=== PATIENT | female | born 1970 | race Caucasian/White ===

== ENCOUNTER 2018-03-02 02:02 | Observation (INO) ==
[2018-03-02 02:20] VITALS: TEMP 98.4
--- NOTE | 2018-03-02 03:03 | XR ---
EXAM DATE: 03/02/2018 2:57 AM EDT AGE/SEX: 47 years / Female INDICATIONS: Short of breath. CLINICAL DATA: This is the patient's initial encounter. Patient reports that signs and symptoms have been present for 1 day and indicates a pain score of 5/10. MEDICAL/SURGICAL HISTORY: None. None. COMPARISON: [facility], XR CHEST PA AND LAT, 04/17/2017. . FINDINGS: A single AP view of the chest demonstrates the lungs to be symmetrically aerated without evidence of mass, infiltrate or effusion. The cardiomediastinal contours are unremarkable. Osseous structures a re intact. CONCLUSION: Negative examination. Electronically signed by: Hudson Madsen MD 03/02/2018 3:01 AM EDT
[2018-03-02 03:26] LABS: Baso % (Auto) 0.8 % (0.0-2.0); Eos # (Auto) 0.1 th/mm3 (0.0-0.4); Eos % (Auto) 1.4 % (0.0-4.0); Hematocrit 40.5 % (35.0-46.0); Hemoglobin 13.5 gm/dL (11.6-15.3); Lymph # (Auto) 2.7 th/mm3 (1.0-4.8); Lymph % (Auto) 50.3 % (9.0-44.0); Mean Corpuscular HGB Conc 33.3 % (32.0-36.0); Mean Corpuscular Hemoglobin 30.8 pg (27.0-34.0); Mean Corpuscular Volume 92.7 fL (80.0-100.0); Mean Platelet Volume 6.9 fL (7.0-11.0); Mono # (Auto) 0.2 th/mm3 (0.0-0.9); Mono % (Auto) 4.4 % (0.0-8.0); Neut # (Auto) 2.3 th/mm3 (1.8-7.7); Neut % (Auto) 43.1 % (16.0-70.0); Platelet Count 305 th/mm3 (150-450); Red Blood Count 4.37 mil/mm3 (4.00-5.30); Red Cell Distribution Width 13.5 % (11.6-17.2); White Blood Count 5.4 th/mm3 (4.0-11.0)
--- NOTE | 2018-03-02 03:33 | ED ---
HPI General Chief complaint: Chest Pain Stated complaint: Chest Pain Time Seen by Provider: 03/02/18 02:31 Source: patient History of Present Illness HPI narrative: The patient is a 47 year old female who presents to the [facility] emergency department with a history of chest pain in the center and left side of her chest that awoke her from sound sleep. She reports the pain is an electrical sensation. She reports that it radiates to the left arm and jaw. She denies having any associated shortness of breath, diaphoresis, or nausea vomiting. She denies ever having a pain like this previously. She denies any history of hypertension, diabetes mellitus, hyperlipidemia, coronary artery disease, DVT, or PE. She denies any lower extremity edema, calf pain, or erythema. She does report having a family history of high blood pressure. She denies ever having stress testing done previously. On review of systems otherwise, the patient denies having any recent heartburn or indigestion. She denies having any known recent fevers, cough, congestion, neck pain, abdominal pain, diarrhea, urinary symptoms, or neurologic symptoms. LMP: One year ago. Related Data Home Medications Medication Instructions Recorded Confirmed levothyroxine 100 mg PO DAILY 03/02/18 03/02/18 Allergies Allergy/AdvReac Type Severity Reaction Status Date / Time No Known Allergies Allergy Unverified 03/02/18 02:21 Review of Systems ROS: all other systems reviewed are negative (Except for that which was mentioned in the HPI.) [facility] Medical History Medical History Hypothyroidism (Acute) Surgical History Surgical History Hx of section (Acute) Social History Social History Substance History: No History of Abuse Second Hand Smoke Exposure: No Smoking Status: Never smoker How Often Do You Have a Drink Containing Alcohol: Never Recent Travel in [facility] within the Last 8 Weeks: No Recent Out of Country Travel within the Last 8 Weeks: No Immunization History Tetanus Immunization: <5 Years Hx Influenza Vaccine This Season: No Exam Const General: cooperative, no acute distress and well developed Nutritional Appearance: well nourished Orientation: alert, awake and oriented x3 HENMT Head: normocephalic and atraumatic Nose: no nasal discharge and no epistaxis Mouth: moist mucous membranes Throat: posterior oropharynx normal and uvula midline Eyes Sclera: normal sclerae Pupils: PERRL Neck Neck: no meningeal signs, trachea midline and no JVD Resp Effort & Inspection: no use of accessory muscles Auscultation: clear to auscultation bilaterally Cardio Rate: regular rate Rhythm: regular rhythm Heart Sounds: no gallops, no murmurs and no rubs GI Inspection: non-distended Palpation: soft, no hepatosplenomegaly and nontender Auscultation: normal bowel sounds Back/Spine/Pelvis Back: no CVA tenderness Skin General: dry skin (warm) Neuro General: alert, awake and oriented x3 Cranial Nerves: other (No facial asymmetry.) Speech: speech normal Motor: no movement abnormalities noted Extrem General: normal to inspection (No calf tenderness on palpation. 2+ pulses in all 4 extremities.), no clubbing, no cyanosis and no edema Psych Mood: congruent mood Affect: normal affect Judgment: judgment good Course Initial Documented Vital Signs Temperature 98.4 F 03/02/18 02:17 Pulse Rate 85 03/02/18 02:17 Respiratory Rate 16 03/02/18 02:17 Blood Pressure 128/90 03/02/18 02:17 Pulse Oximetry 100 03/02/18 02:17 Last Documented Vital Signs Temperature 98.4 F 03/02/18 02:17 Pulse Rate 71 03/02/18 03:49 Respiratory Rate 18 03/02/18 03:49 Blood Pressure 122/69 03/02/18 03:49 Pulse Oximetry 99 03/02/18 03:49 Clinical Decision Support PERC Rule Age greater than or equal to 50: Yes HR greather than or equal to 100: Yes Sa02 on room air is less than 95%: Yes Unilateral Leg Swelling: No Hemoptysis: No Recent Surgery or Trauma: No Prior PE or DVT: No Hormone Use: No Wells' Criteria Questions Clinical Signs and Symptoms of DVT: No PE is primary diagnosis or equally likely: No Heart Rate greater than 100: No Immobilized at least 3 days or Surgery in previous 4 weeks: No Previous, objectively diagnosed PE or DVT: No Hemoptysis: No Malignancy with treatment within 6 months or palliative: No Wells' Criteria Score Wells' Criteria Score: 0 Medical Decision Making MDM Narrative Medical decision making narrative: During the course of the patient's emergency department visit, the patient's history, examination, and differential diagnosis were reviewed with the patient. The patient was placed on a environmental monitoring technician with oximetry and frequent blood pressure monitoring. The patient had IV access obtained and blood work sent for analysis. A diagnostic evaluation was started regarding the patient's chest pain that radiates to the left arm and jaw. The patient was initially provided aspirin 324 mg p.o. 1, nitroglycerin sublingual 1. The patient's diagnostic evaluation is remarkable for a white count of 5.4, platelets 305, 50.3 lymphocyte percent, hemoglobin is 13.5, PT 9.7, PTT 25.2, chemistry reveals a troponin I of less than 0.02, CPK 89, GFR of 86, chloride 111, lipase 110. A chest x-ray shows no acute cardiopulmonary disease. The patient's well score was 0, PERC rule was negative, therefore no additional PE testing is indicated. The patient is agreeable with the plan to proceed with admission to the chest pain center for rule out serial cardiac enzyme protocol followed by stress testing. The patient's results were discussed with the patient, including the plan of care. I explained that further testing and/ or monitoring is indicated based on the patient's history, examination, and/ or laboratory findings. Therefore, I recommended admission for additional evaluation. The patient expressed understanding and was agreeable with this plan. The patient was admitted to the hospital in stable condition and sent to a bed under the care of the [facility]. Medical Screen Exam Complete: Yes Emergency Medical Condition: Yes Differential Diagnosis Differential Diagnosis: Acute coronary syndrome, versus pulmonary embolism, versus pneumonia, versus pneumothorax, versus acid reflux Medical Records Medical records reviewed: Yes I reviewed the patient's medical records. POC Test Results POC Urine Results: Negative Lab Data Lab results reviewed: Yes I reviewed the patient's lab results. Result diagrams: 03/02/18 03:11 03/02/18 03:11 Lab Results 03/02/18 03/02/18 03/02/18 Range/Units 03:11 03:11 03:11 WBC 5.4 (4.0-11.0) th/mm3 RBC 4.37 (4.00-5.30) mil/mm3 Hgb 13.5 (11.6-15.3) gm/dL Hct 40.5 (35.0-46.0) % MCV 92.7 (80.0-100.0) fL MCH 30.8 (27.0-34.0) pg MCHC 33.3 (32.0-36.0) % RDW 13.5 (11.6-17.2) % Plt Count 305 (150-450) th/mm3 MPV 6.9 L (7.0-11.0) fL Neut % (Auto) 43.1 (16.0-70.0) % Lymph % (Auto) 50.3 H (9.0-44.0) % [place] % (Auto) 4.4 (0.0-8.0) % Eos % (Auto) 1.4 (0.0-4.0) % Baso % (Auto) 0.8 (0.0-2.0) % Neut # (Auto) 2.3 (1.8-7.7) th/mm3 Lymph # (Auto) 2.7 (1.0-4.8) th/mm3 [place] # (Auto) 0.2 (0.0-0.9) th/mm3 Eos # (Auto) 0.1 (0.0-0.4) th/mm3 Baso # (Auto) 0.0 (0.0-0.2) th/mm3 WBC Differential . Differential Comment Auto diff final PT 9.7 L (9.8-11.6) sec INR 1.0 Ratio APTT 25.2 (24.3-30.1) sec Sodium (136-145) meq/L Potassium (3.5-5.1) meq/L Chloride (98-107) meq/L Carbon Dioxide (21.0-32.0) meq/L Anion Gap (5-15) meq/L BUN (7-18) mg/dL Creatinine (0.50-1.00) mg/dL Estimated GFR (>89) mL/min Random Glucose (74-106) mg/dL Calcium (8.5-10.1) mg/dL Magnesium (1.5-2.5) mg/dL Total Bilirubin (0.2-1.0) mg/dL AST (15-37) U/L ALT (10-53) U/L Alkaline Phosphatase (45-117) U/L Total Creatine Kinase (26-192) U/L Troponin I Cancelled Total Protein (6.4-8.2) g/dL Albumin (3.4-5.0) g/dL Lipase Cancelled 03/02/18 Range/Units 03:11 WBC (4.0-11.0) th/mm3 RBC (4.00-5.30) mil/mm3 Hgb (11.6-15.3) gm/dL Hct (35.0-46.0) % MCV (80.0-100.0) fL MCH (27.0-34.0) pg MCHC (32.0-36.0) % RDW (11.6-17.2) % Plt Count (150-450) th/mm3 MPV (7.0-11.0) fL Neut % (Auto) (16.0-70.0) % Lymph % (Auto) (9.0-44.0) % [place] % (Auto) (0.0-8.0) % Eos % (Auto) (0.0-4.0) % Baso % (Auto) (0.0-2.0) % Neut # (Auto) (1.8-7.7) th/mm3 Lymph # (Auto) (1.0-4.8) th/mm3 [place] # (Auto) (0.0-0.9) th/mm3 Eos # (Auto) (0.0-0.4) th/mm3 Baso # (Auto) (0.0-0.2) th/mm3 WBC Differential Differential Comment PT (9.8-11.6) sec INR Ratio APTT (24.3-30.1) sec Sodium 143 (136-145) meq/L Potassium 3.8 (3.5-5.1) meq/L Chloride 111 H (98-107) meq/L Carbon Dioxide 24.5 (21.0-32.0) meq/L Anion Gap 8 (5-15) meq/L BUN 11 (7-18) mg/dL Creatinine 0.73 (0.50-1.00) mg/dL Estimated GFR 86 L (>89) mL/min Random Glucose 93 (74-106) mg/dL Calcium 8.8 (8.5-10.1) mg/dL Magnesium 2.3 (1.5-2.5) mg/dL Total Bilirubin 0.3 (0.2-1.0) mg/dL AST 15 (15-37) U/L ALT 30 (10-53) U/L Alkaline Phosphatase 94 (45-117) U/L Total Creatine Kinase 89 (26-192) U/L Troponin I Less than 0.02 L Total Protein 7.1 (6.4-8.2) g/dL Albumin 3.6 (3.4-5.0) g/dL Lipase 110 Imaging Data Radiologist's impression: Chest X-Ray 03/02/18 02:34 CONCLUSION: Negative examination. ECG Data Attestation: I personally reviewed and interpreted this ECG as follows: Interpretation: The patient had an EKG done on arrival. The patient's EKG shows a sinus rhythm heart rate is 77, QRS duration is 84 ms, QTC [address] segment elevation. T waves are inverted in V1. Discharge Plan Discharge Disposition Patient Disposition: 30 Still Patient Discharge Details Diagnosis: Chest pain, rule out acute myocardial infarction Physicians Team ED Provider: Patience Rosario Primary Care Provider: UNKNOWN, Attending Provider: Siva Galdamez Discharge Interventions Interventions: Vital Signs Last Done: 03/02/18 02:20 Status ED Status: Admitted Observation Patient
[2018-03-02 03:35] LABS: Activated Partial Thrombo Time 25.2 sec (24.3-30.1); Prothrombin Time 9.7 sec (9.8-11.6)
[2018-03-02 03:52] LABS: Alanine Aminotransferase 30 U/L (10-53); Albumin 3.6 g/dL (3.4-5.0); Anion Gap 8 meq/L (5-15); Aspartate Aminotransferase 15 U/L (15-37); Blood Urea Nitrogen 11 mg/dL (7-18); Calcium 8.8 mg/dL (8.5-10.1); Carbon Dioxide 24.5 meq/L (21.0-32.0); Chloride 111 meq/L (98-107); Glomerular Filtration Rate 86 mL/min (>89); Glucose,Random 93 mg/dL (74-106); Lipase 110 U/L (73-393); Magnesium 2.3 mg/dL (1.5-2.5); Potassium 3.8 meq/L (3.5-5.1); Sodium 143 meq/L (136-145)
[2018-03-02 03:56] LABS: Alkaline Phosphatase 94 U/L (45-117); Creatine Kinase 89 U/L (26-192); Total Protein 7.1 g/dL (6.4-8.2)
[2018-03-02] MEDS ORDERED: Acetaminophen 500 MG Tablet PO PRN (05:51)
[2018-03-02 07:49] LABS: Creatine Kinase 93 U/L (26-192)
[2018-03-02 07:50] VITALS: BP 115/76; PULSE 75; RESP 14; O2SAT 97
--- NOTE | 2018-03-02 08:26 | ECG ---
Date Performed: 03/02/2018 Time Performed: 02:36:39 PTAGE: 47 years EKG: Sinus rhythm NORMAL ECG NO PREVIOUS TRACING DOCTOR: Ashli Luciano Interpretating Date/Time 03/02/2018 08:25:56
--- NOTE | 2018-03-02 08:28 | ECG ---
Date Performed: 03/02/2018 Time Performed: 06:19:00 PTAGE: 47 years EKG: Sinus rhythm NORMAL ECG Since PREVIOUS TRACING , no significant change noted DOCTOR: Ashli Luciano Interpretating Date/Time 03/02/2018 08:26:58
--- NOTE | 2018-03-02 09:33 | P.HPCA ---
History of Present Illness Primary Care Physician: UNKNOWN Chief Complaint: Chest pain History of Present Illness: This is a 47-year-old female the presents to ED with complaint of developing a chest discomfort last evening. States awoke her. It was a 7 out of 10. He was in the center/left upper chest. Lasted a few seconds but recurred a couple times. Really cannot recall being short of breath nauseous or diaphoretic. Has not had this before. Patient is a lifetime non-smoker. Denies . Denies family history of CAD. Non-smoker. - Diagnosis (1) Chest pain Review of Systems General: Patient denies fevers, chills, and recent travel. HEENT: Patient denies headache, sore throat, difficulty swallowing. Cardiovascular: Has the chest discomfort as mentioned above. Denies sensation of heart beating rapidly or irregularly. No syncope. Denies diaphoresis. Respiratory: Denies shortness of breath or inspirational chest discomfort. Denies coughing wheezing or hemoptysis. GI: Patient denies nausea, vomiting, diarrhea, abdominal pain, bloody stools. Musculoskeletal: Patient denies joint pain or edema. Denies calf pain or edema. Neurovascular: Patient denies numbness, tingling, weakness in extremities. Denies headache. Endocrine: Denies polyuria and polydipsia. Hematologic: Denies easy bruising. Skin: Denies rash or itching. PMFSH - Medical History Medical History: Medical History (Last Reviewed 03/02/18 @ 04:41 by Patience Rosario MD) Hypothyroidism - Surgical History Surgical History: Surgical History (Last Reviewed 03/02/18 @ 04:41 by Patience Rosario MD) Hx of section - Tobacco History Second Hand Smoke Exposure: No Smoking Status: Never smoker - Alcohol History How Often Do You Have a Drink Containing Alcohol: Never - Substance Use History Substance History: No History of Abuse - Travel History Recent Travel in the [place] Within the Last 8 Weeks: No Recent Travel Out of the Country Within the Last 8 Weeks: No - Immunization History Tetanus Immunization: <5 Years Hx Influenza Vaccine This Season: No Medications and Allergies Active Medications: Active Medications Acetaminophen (Tylenol) 500 mg PO Q4H PRN PRN Reason: HEADACHE Sodium Chloride (Ns Flush) 2 ml IV.FLUSH UNSCH PRN PRN Reason: FLUSH AFTER USING IV ACCESS Sodium Chloride (Ns Flush) 2 ml IV.FLUSH PRN PRN PRN Reason: FLUSH AFTER USING IV ACCESS Sodium Chloride (Ns Flush) 2 ml IV.FLUSH BID MARISOL Allergies Allergy/AdvReac Type Severity Reaction Status Date / Time No Known Allergies Allergy Unverified 03/02/18 02:21 Home Medications Medication Instructions Recorded Confirmed Type levothyroxine 100 mg PO DAILY 03/02/18 03/02/18 History Exam Vital signs: Vital Signs 03/02/18 02:17 03/02/18 02:20 03/02/18 02:46 Temperature 98.4 F Pulse Rate 85 85 Respiratory Rate 16 18 Blood Pressure 128/90 131/79 Pulse Oximetry 100 98 97 03/02/18 03:49 03/02/18 06:36 03/02/18 07:49 Temperature Pulse Rate 71 66 75 Respiratory Rate 18 18 14 Blood Pressure 122/69 112/64 115/76 Pulse Oximetry 99 98 97 Intake & Output 03/01/18 03/02/18 03/02/18 18:59 06:59 18:59 Weight 72.575 kg Narrative: GENERAL: This is a well-nourished, well-developed patient, in no apparent distress. Patient speaks in clear complete sentences. Patient is pleasant. HEENT: Head is atraumatic and normocephalic. Neck is supple without lymphadenopathy and trachea is midline. No JVD or carotid bruits. CARDIOVASCULAR: Regular rate and rhythm without murmurs, gallops, or rubs. RESPIRATORY: Clear to auscultation. Breath sounds equal bilaterally. No wheezes , rales, or rhonchi. Chest wall is tender in the same location of pain that she describes however she states the discomfort does not feel the same. No use of accessory muscles. GASTROINTESTINAL: Abdomen is nontender, nondistended. Abdomen soft. No obvious pulsatile mass or bruit. No CVA tenderness. Strong femoral pulses bilaterally. Normal bowel sounds in all quadrants. MUSCULOSKELETAL: Patient is moving upper and lower extremities freely. No calf tenderness or edema, no Homans sign. Strong pulses in upper and lower extremities. NEUROLOGICAL: Patient is alert and oriented. Cranial nerves 2-12 are grossly intact. No focal deficits and speech is clear. SKIN: No rash and turgor is normal. Results 03/02/18 03:11 03/02/18 03:11 Cardiac Enzymes 03/02/18 03/02/18 03/02/18 Range/Units 03:11 03:11 06:08 AST 15 (15-37) U/L Troponin I Cancelled Less than 0.02 L Less than 0.02 L Coagulation 03/02/18 Range/Units 03:11 PT 9.7 L (9.8-11.6) sec APTT 25.2 (24.3-30.1) sec CBC 03/02/18 Range/Units 03:11 WBC 5.4 (4.0-11.0) th/mm3 RBC 4.37 (4.00-5.30) mil/mm3 Hgb 13.5 (11.6-15.3) gm/dL Hct 40.5 (35.0-46.0) % Plt Count 305 (150-450) th/mm3 Neut # (Auto) 2.3 (1.8-7.7) th/mm3 Lymph # (Auto) 2.7 (1.0-4.8) th/mm3 [place] # (Auto) 0.2 (0.0-0.9) th/mm3 Eos # (Auto) 0.1 (0.0-0.4) th/mm3 Baso # (Auto) 0.0 (0.0-0.2) th/mm3 Comprehensive Metabolic Panel 03/02/18 Range/Units 03:11 Sodium 143 (136-145) meq/L Potassium 3.8 (3.5-5.1) meq/L Chloride 111 H (98-107) meq/L Carbon Dioxide 24.5 (21.0-32.0) meq/L BUN 11 (7-18) mg/dL Creatinine 0.73 (0.50-1.00) mg/dL Calcium 8.8 (8.5-10.1) mg/dL AST 15 (15-37) U/L ALT 30 (10-53) U/L Alkaline Phosphatase 94 (45-117) U/L Total Protein 7.1 (6.4-8.2) g/dL Albumin 3.6 (3.4-5.0) g/dL Intake and Output 03/01/18 03/02/18 03/02/18 22:59 06:59 14:59 Other: Weight 72.575 kg EKG interpretations - EKG EKG shows: sinus rhythm (EKGs are sinus rhythm without significant ST segment depressions or elevations.) Caprini VTE Risk Assessment Caprini VTE Risk Assessment: No/Low Risk (score <= 1) Caprini Risk Assessment Model: Point Value = 1 Point Value = 2 Point Value = 3 Point Value = 5 Age 41-60 Minor surgery BMI > 25 kg/m2 Swollen legs Varicose veins or History of unexplained or recurrent spontaneous Oral contraceptives or hormone replacement Sepsis (< 1 month) Serious lung disease, including pneumonia (< 1 month) Abnormal pulmonary function Acute myocardial infarction Congestive heart failure (< 1 month) History of inflammatory bowel disease Medical patient at bed rest Age 61-74 Arthroscopic surgery Major open surgery (> 45 min) Laparoscopic surgery (> 45 min) Malignancy Confined to bed (> 72 hours) Immobilizing plaster cast Central venous access Age >= 75 History of VTE Family history of VTE Factor V Leiden Prothrombin [id number] Lupus anticoagulant Anticardiolipin antibodies Elevated serum homocysteine Heparin-induced thrombocytopenia Other congenital or acquired thrombophilia Stroke (< 1 month) Elective arthroplasty Hip, pelvis, or leg fracture Acute spinal cord injury (< 1 month) Prophylaxis Regimen: Total Risk Factor Score Risk Level Prophylaxis Regimen 0-1 Low Early ambulation 2 Moderate Order ONE of the following: *Sequential Compression Device (SCD) *Heparin 5000 units SQ BID 3-4 Higher Order ONE of the following medications: *Heparin 5000 units SQ TID *Enoxaparin/Lovenox 40 mg SQ daily (WT < 150 kg, CrCl > 30 mL/min) *Enoxaparin/Lovenox 30 mg SQ daily (WT < 150 kg, CrCl > 10-29 mL/min) *Enoxaparin/Lovenox 30 mg SQ BID (WT < 150 kg, CrCl > 30 mL/min) AND/OR *Sequential Compression Device (SCD) 5 or more Highest Order ONE of the following medications: *Heparin 5000 units SQ TID (Preferred with Epidurals) *Enoxaparin/Lovenox 40 mg SQ daily (WT < 150 kg, CrCl > 30 mL/min) *Enoxaparin/Lovenox 30 mg SQ daily (WT < 150 kg, CrCl > 10-29 mL/min) *Enoxaparin/Lovenox 30 mg SQ BID (WT < 150 kg, CrCl > 30 mL/min) AND *Sequential Compression Device (SCD) Assessment and Plan - Assessment (1) Chest pain Code(s): R07.9 - Chest pain, unspecified Status: Acute - Plan * Chest pain: Patient has had serial cardiac enzymes and EKGs for ruling out purposes. She was seen by Dr. Luciano of cardiology in the chest pain center. She will have a Arpit protocol ETT. She will be discharged home if her stress test is nonischemic with instructions to follow-up PCP. Return to ED for interval issues. Patient is stable at this time. She is agreeable to this plan.
--- NOTE | 2018-03-02 16:28 | TR ---
Date Performed: 03/02/2018 Time Performed: 09:24:51 DOCTOR: Ashli Luciano DRUG LIST: CLINICAL HISTORY: REASON FOR TEST: REASON FOR ENDING: OBSERVATION: CONCLUSION: SHONNA PROTOCOL ETT. NO CP TEST STOPPED AFTER EXCEEDING GOAL HR SECONDARY TO SOB AND LEG FATIGUE.Maximum LO=352 % Max HR Lyltqvus=273.0% Maximum HX=587/84 Total Exercise Time=7:00 COMMENTS: No ischemia
== END 2018-03-02 10:21 | disposition home or self-care (01) ==
LOC: NEDH 02:02 → NEPE 02:02 → NEDA 02:02 → NEDH 10:18
PROVIDERS: ADMIT Internal Medicine Cardiovascular Disease; ATTEND Internal Medicine Cardiovascular Disease